=== PATIENT | female | born 1950 | race Caucasian/White ===

== ENCOUNTER 2017-01-21 02:36 | Inpatient (IN) | payer MEDICARE, BC, OTHER ==
[~2017-01-21] VITALS: Ht 167.6 cm; Wt 62.2 kg
[2017-01-21] MEDS ORDERED: methylPREDNISolone SOD SUCC 125 MG/2 ML ONE (02:52)
[2017-01-21] MEDS ORDERED: methylPREDNISolone SOD SUCC 125 MG/2 ML IVP ONE (03:00)
[2017-01-21] MEDS ORDERED: SODIUM CHLORIDE 0.9% 1,000ML IVBOLUS ONE (03:00)
[2017-01-21] MEDS ORDERED: PROPOFOL 100 ML IV PRN ×2 (03:00→07:58)
[2017-01-21] MEDS ORDERED: ALBUTEROL 0.5%, 20ML NPPB SCH (03:00)
[2017-01-21] MEDS ORDERED: SUCCINYLCHOLINE 20 MG/ML, 10ML IVPush ONE (03:00)
[2017-01-21] MEDS ORDERED: ETOMIDATE 20 MG/10 ML IVPush ONE (03:00)
[2017-01-21 03:22] LABS: HEMATOCRIT 40.9 % (34.6-47.8); HEMOGLOBIN 13.3 g/dL (11.7-16.4); WHITE BLOOD COUNT 13.6 x10^3/uL (3.4-10)
[2017-01-21 03:23] LABS: ABG COLLECTION SITE LEFT RADIAL; COLLATERAL CIRCULATION TESTING NORMAL
[2017-01-21 03:37] LABS: BLOOD UREA NITROGEN 12 mg/dL (7-18)
[2017-01-21 03:54] LABS: IS PT STATUS REG ER OR PRE ER? YES
[2017-01-21] MEDS ORDERED: PIPERACILLIN/TAZO/PMX 3.375GM 50 ML ONE (03:54)
[2017-01-21] MEDS ORDERED: MIDAZOLAM 1 MG/ML, 5ML IVPush ONE (04:00)
[2017-01-21] MEDS ORDERED: MIDAZOLAM HCL 25 MG in SODIUM CHLORIDE 0.9% 245 ML IV PRN ×2 (04:00→07:58)
[2017-01-21] MEDS ORDERED: VANCOMYCIN PMX 1GM/200ML 200 ML IV ONE (04:00)
[2017-01-21] MEDS ORDERED: PIPERACILLIN/TAZO/PMX 3.375GM 50 ML IVPB ONE (04:00)
[2017-01-21] MEDS ORDERED: VANCOMYCIN PER PHARMACY IV ONE (04:00)
[2017-01-21] MEDS ORDERED: SODIUM CHLORIDE 0.9% 1,000 ML IV ONE (04:13)
[2017-01-21] MEDS ORDERED: PHARMACOKINETIC CONSULTATION MC ONE ×2 (04:30→06:00)
[2017-01-21] MEDS ORDERED: ONDANSETRON 2MG/ML, 2ML IVPush PRN (04:30)
[2017-01-21] MEDS ORDERED: ACETAMINOPHEN 325 MG TABLET PO PRN (05:30)
[2017-01-21] MEDS ORDERED: VANCOMYCIN PER PHARMACY MC PRN (05:30)
[2017-01-21] MEDS ORDERED: ENALAPRILAT 1.25 MG/ML, 2ML IVPush PRN (05:30)
[2017-01-21] MEDS ORDERED: PHARMACOKINETIC MONITORING MC PRN (06:00)
[2017-01-21] MEDS ORDERED: PLEASE ENTER HEIGHT AND WEIGHT MC SCH (06:00)
[2017-01-21] MEDS: CEFTAZIDIME PMX 2 GM/50ML 50 ML IV SCH ×3 (06:25→21:05)
[2017-01-21] MEDS: MIDAZOLAM HCL 50 MG in SODIUM CHLORIDE 0.9% 240 ML IV PRN ×2 (06:38→20:13)
[2017-01-21] MEDS: PROPOFOL 100 ML IV PRN ×4 (06:44→21:25)
[2017-01-21] MEDS: ALBUTEROL/IPRATROPIUM 2.5MG/0.5MG, 3 ML INLINE SCH ×5 (06:44→21:49)
[2017-01-21] MEDS: ALBUTEROL/IPRATROPIUM 2.5MG/0.5MG, 3 ML NPPB SCH ×2 (06:44→10:41)
[2017-01-21] MEDS ORDERED: INSULIN ASPART 100 UNITS/ML, PEN SQ-INSULIN SCH (07:00)
[2017-01-21 07:15] LABS: ABG COLLECTION SITE RIGHT RADIAL
[2017-01-21 07:16] LABS: COLLATERAL CIRCULATION TESTING NORMAL
[2017-01-21] MEDS ORDERED: SENNA/DOCUSATE TABLET NG PRN (08:00)
[2017-01-21] MEDS ORDERED: SENNOSIDES 8.8 MG/5 ML ORAL SOL NG PRN (08:00)
[2017-01-21] MEDS ORDERED: LIDOCAINE-MPF 1%, 2ML ENDO PRN (08:00)
[2017-01-21] MEDS ORDERED: FENTANYL PF 100 MCG/2ML IVPush PRN (08:00)
[2017-01-21] MEDS ORDERED: BISACODYL 10 MG SUPP PR PRN (08:00)
[2017-01-21] MEDS ORDERED: LACTULOSE 20 GM/30 ML UDC NG PRN (08:00)
[2017-01-21] MEDS ORDERED: PHARMACY MAY ADJ FOR RENAL FX MC SCH (08:00)
[2017-01-21] MEDS: ENOXAPARIN 40 MG/0.4 ML SQ SCH (08:58)
[2017-01-21] MEDS: methylPREDNISolone SOD SUCC 125 MG/2 ML IVPush SCH ×3 (08:58→21:05)
[2017-01-21] MEDS: FAMOTIDINE 20 MG/2 ML IVPush SCH ×2 (08:58→21:05)
[2017-01-21 12:15] LABS: PATH.CAST-FLAG NOT PRESENT; SPERM-FLAG NOT PRESENT; SRC-FLAG NOT PRESENT; XTAL-FLAG NOT PRESENT; YLC-FLAG NOT PRESENT
[2017-01-21] MEDS: SODIUM CHLORIDE 0.9% 1,000 ML IV SCH ×2 (12:59→22:33)
[2017-01-21] MEDS: INSULIN ASPART 100 UNITS/ML, PEN SQ-INSULIN SCH ×2 (15:00→21:00)
[2017-01-21] MEDS ORDERED: MIDAZOLAM 1 MG/ML, 5ML ONE (16:57)
[2017-01-21] MEDS ORDERED: ETOMIDATE 40 MG/20 ML ONE (16:57)
[2017-01-21] MEDS ORDERED: SUCCINYLCHOLINE 20 MG/ML, 10ML ONE (16:57)
[2017-01-21] MEDS ORDERED: PROPOFOL 10 MG/ML, 20ML ONE (16:57)
[2017-01-22] MEDS ORDERED: VANCOMYCIN 1,200 MG in SODIUM CHLORIDE 0.9% 250 ML IV SCH
[2017-01-22] MEDS: PROPOFOL 100 ML IV PRN ×2 (01:20→05:16)
[2017-01-22] MEDS: ALBUTEROL/IPRATROPIUM 2.5MG/0.5MG, 3 ML INLINE SCH ×6 (01:49→23:52)
[2017-01-22] MEDS: methylPREDNISolone SOD SUCC 125 MG/2 ML IVPush SCH ×4 (03:41→21:12)
[2017-01-22] MEDS: INSULIN ASPART 100 UNITS/ML, PEN SQ-INSULIN SCH ×2 (03:52→07:57)
[2017-01-22 04:00] VITALS: BP 114/63
[2017-01-22] MEDS ORDERED: VANCOMYCIN PMX 1GM/200ML 200 ML IV SCH (04:15)
[2017-01-22 04:32] LABS: ABG COLLECTION SITE RIGHT RADIAL; COLLATERAL CIRCULATION TESTING NORMAL
[2017-01-22 04:36] LABS: HEMATOCRIT 36.6 % (34.6-47.8); HEMOGLOBIN 12.3 g/dL (11.7-16.4); WHITE BLOOD COUNT 8.7 x10^3/uL (3.4-10)
[2017-01-22 04:43] LABS: BLOOD UREA NITROGEN 7 mg/dL (7-18)
[2017-01-22] MEDS: CEFTAZIDIME PMX 2 GM/50ML 50 ML IV SCH ×3 (05:16→21:12)
[2017-01-22] MEDS: FAMOTIDINE 20 MG/2 ML IVPush SCH ×2 (07:49→21:11)
[2017-01-22] MEDS: SODIUM CHLORIDE 0.9% 1,000 ML IV SCH ×2 (07:49→11:27)
[2017-01-22] MEDS: ENOXAPARIN 40 MG/0.4 ML SQ SCH (07:49)
[2017-01-23] MEDS: methylPREDNISolone SOD SUCC 125 MG/2 ML IVPush SCH ×2 (03:26→08:22)
[2017-01-23 04:00] VITALS: BP 122/67
[2017-01-23] MEDS: ALBUTEROL/IPRATROPIUM 2.5MG/0.5MG, 3 ML INLINE SCH ×3 (04:13→10:13)
[2017-01-23 04:25] LABS: HEMOGLOBIN 11.2 g/dL (11.7-16.4); WHITE BLOOD COUNT 13.1 x10^3/uL (3.4-10)
[2017-01-23 04:38] LABS: ABG COLLECTION SITE RIGHT RADIAL; COLLATERAL CIRCULATION TESTING NORMAL
[2017-01-23 04:42] LABS: BLOOD UREA NITROGEN 11 mg/dL (7-18)
[2017-01-23] MEDS: CEFTAZIDIME PMX 2 GM/50ML 50 ML IV SCH ×2 (05:19→11:58)
[2017-01-23] MEDS: FAMOTIDINE 20 MG/2 ML IVPush SCH (08:21)
[2017-01-23] MEDS: ENOXAPARIN 40 MG/0.4 ML SQ SCH (08:22)
[2017-01-23] MEDS ORDERED: POTASSIUM CHLORIDE 20 MEQ TAB.ER.PRT PO ONE (09:00)
[2017-01-23] MEDS ORDERED: PRED20TA PO (10:30)
[2017-01-23] MEDS ORDERED: FLUT1AER INH (10:42)
[2017-01-23] MEDS ORDERED: DOXY100C2 PO (10:42)
[2017-01-23] MEDS ORDERED: ALBU1.25 NEB (10:45)
== END 2017-01-23 15:16 | disposition home or self-care (01) | DRG 208 ==
LOC: ED 02:55 → EDIP 04:33 → CCU 05:43
PROVIDERS: ADMIT Internal Medicine; ATTEND Internal Medicine
PROC: 0T9B70Z Drainage of Bladder with Drainage Device, Via Natural or Artificial Opening (ICD-10-PCS; principal; 2017-01-21)
PROC: 5A1935Z Respiratory Ventilation, Less than 24 Consecutive Hours (ICD-10-PCS; 2017-01-21)
PROC: 0BH17EZ Insertion of Endotracheal Airway into Trachea, Via Natural or Artificial Opening (ICD-10-PCS; 2017-01-21)
DX: J96.01 Acute respiratory failure with hypoxia (principal); Z99.11 Dependence on respirator [ventilator] status; E87.2 Acidosis; J45.52 Severe persistent asthma with status asthmaticus; E44.1 Mild protein-calorie malnutrition; D72.829 Elevated white blood cell count, unspecified; E11.65 Type 2 diabetes mellitus with hyperglycemia; Z68.22 Body mass index [BMI] 22.0-22.9, adult; E87.6 Hypokalemia; F17.210 Nicotine dependence, cigarettes, uncomplicated; I10 Essential (primary) hypertension; J44.9 Chronic obstructive pulmonary disease, unspecified; Z51.5 Encounter for palliative care; Z85.3 Personal history of malignant neoplasm of breast
CPT/HCPCS: 31500; 36415; 36600; 71010; 80048; 81001; 82040; 82803; 82962; 83605; 83735; 83880; 84478; 84484; 85025; 87040; 87070; 87081; 87205; 93005; 94002; 94003; 94640; 96365; 96366; 96368; J1650; J1815; J2250; J2543; J2704; J3370; J7620; J0330; J0713; J2930; J7030; J7050; S0028

== ENCOUNTER 2018-12-11 17:58 | Emergency (ER) | payer MEDICARE ==
[~2018-12-11] VITALS: Ht 175.3 cm; Wt 56.6 kg
[2018-12-11 21:29] VITALS: BP 176/101
== END 2018-12-11 22:40 | disposition home or self-care (01) ==
LOC: ED 22:05
DX: N95.0 Postmenopausal bleeding (principal); I10 Essential (primary) hypertension; J45.909 Unspecified asthma, uncomplicated
CPT/HCPCS: 36415; 76830; 80053; 81003; 85025; 99284

== ENCOUNTER 2019-01-14 11:26 | Outpatient (CLI) | payer MEDICARE ==
[~2019-01-14 11:26] MED LIST: ALBU1.25 NEB; DOXY100C2 PO; FLUT1AER INH; PRED20TA PO
[2019-01-14] MEDS ORDERED: LISI-170 PO (12:49)
[2019-01-14 13:00] LABS: PROTHROMBIN TIME 10.5 Seconds (9.6-11.5)
[2019-01-14 13:01] LABS: ALANINE AMINOTRANSFERASE 26 U/L (12-78); ALBUMIN 3.9 g/dL (3.4-5.0); ANION GAP 7 mmol/L (5-15); CALCIUM 9.2 mg/dL (8.5-10.1); CHLORIDE 106 mmol/L (98-107); CREATININE 0.63 mg/dL (0.55-1.02)
[2019-01-14 13:04] LABS: ALKALINE PHOSPHATASE 79 U/L (45-117); BILIRUBIN,TOTAL 0.4 mg/dL (0.2-1.0); TOTAL PROTEIN 7.8 g/dL (6.4-8.2)
[2019-01-14 13:08] LABS: BASOPHILS # (AUTO) 0.22 x10^3/uL (0-0.1); BASOPHILS % (AUTO) 3 % (0-1); EOSINOPHILS # (AUTO) 0.22 x10^3/uL (0-0.4); EOSINOPHILS % (AUTO) 3 % (1-7); LYMPHOCYTES # (AUTO) 2.74 x10^3/uL (1-3.4); LYMPHOCYTES % (AUTO) 31 % (22-44); MD NO; MEAN CORPUSCULAR HEMOGLOBIN 31.7 pg (27.0-34.8); MEAN CORPUSCULAR VOLUME 95.9 fL (80-100); MEAN PLATELET VOLUME 7.7 fL (7.4-10.4); MONOCYTES # (AUTO) 0.62 x10^3/uL (0.2-0.8); MONOCYTES % (AUTO) 7 % (2-9); NEUTROPHILS # (AUTO) 4.96 x10^3/uL (1.8-6.8); NEUTROPHILS % (AUTO) 57 % (42-75); PLATELET COUNT 516 x10^3/uL (130-400); RED BLOOD COUNT 4.39 x10^6/uL (3.82-5.3); RED CELL DISTRIBUTION WIDTH 13.8 % (9.6-15.2)
[2019-01-14] MEDS ORDERED: ALBU1.25 NEB (13:28)
== END 2019-01-14 23:59 | disposition home or self-care (01) ==
LOC: STAR 11:26
PROVIDERS: ATTEND Specialist
DX: Z01.818 Encounter for other preprocedural examination (principal); C54.1 Malignant neoplasm of endometrium
CPT/HCPCS: 36415; 71046; 80053; 85025; 85610; 85730; 86304; 93005

== ENCOUNTER 2019-04-19 17:26 | Emergency (ER) | payer MEDICARE ==
[~2019-04-19] VITALS: Ht 175.3 cm; Wt 54.5 kg
[~2019-04-19 17:26] MED LIST changes: +LISI-170 PO
[2019-04-19 17:29] VITALS: BP 194/95
[2019-04-19] MEDS ORDERED: OXYcodone/APAP 5/325MG TABLET ONE (18:19)
[2019-04-19] MEDS ORDERED: ONDANSETRON ODT 4 MG ONE (18:19)
--- NOTE | 2019-04-19 18:24 | NUR ---
Patient transported for xray via wheelchair at this time.
[2019-04-19] MEDS ORDERED: ONDANSETRON ODT 4 MG PO ONE (18:30)
[2019-04-19] MEDS ORDERED: OXYcodone/APAP 5/325MG TABLET PO ONE (18:30)
--- NOTE | 2019-04-19 19:34 | NUR ---
Discharge instructions discussed with patient including when to return to emergency department, verbalizes understanding. Prescriptions provided with instruction for use. Patient wheeled to vehicle where friend was waiting to drive her home.
== END 2019-04-19 19:37 | disposition home or self-care (01) ==
LOC: ED 19:31
DX: S16.1XXA Strain of muscle, fascia and tendon at neck level, initial encounter (principal); S70.01XA Contusion of right hip, initial encounter; I10 Essential (primary) hypertension; J45.909 Unspecified asthma, uncomplicated; Z87.891 Personal history of nicotine dependence; W01.0XXA Fall on same level from slipping, tripping and stumbling without subsequent striking against object, initial encounter; Y93.89 Activity, other specified; Y92.89 Other specified places as the place of occurrence of the external cause; Y99.8 Other external cause status
CPT/HCPCS: 72050; 73502; 99283; Q0162